=== PATIENT | male | born 1995 | race African-American/Black ===

== ENCOUNTER 2020-02-09 21:14 | Emergency (ER) | payer MEDICAID ==
[~2020-02-09] VITALS: Ht 172.7 cm; Wt 73.0 kg
[2020-02-09 21:35] VITALS: BP 120/77
== END 2020-02-09 23:04 | disposition left against medical advice (07) ==
LOC: ER 21:14
DX: Z04.89 Encounter for examination and observation for other specified reasons (principal); Z59.0 Homelessness
CPT/HCPCS: 99283